=== PATIENT | male | born 1985 | race Caucasian/White ===

== ENCOUNTER 2019-09-21 08:29 | Emergency (ER) | payer OTHER ==
[~2019-09-21] VITALS: Ht 182.9 cm; Wt 99.8 kg
[2019-09-21 08:36] VITALS: BP 134/93
[2019-09-21] MEDS ORDERED: NORCO 5-325 TA1 EAC2 PO (09:22)
[2019-09-21] MEDS ORDERED: ERYTHROMYCIN E3.5 G3 OPHTHALMIC (09:22)
== END 2019-09-21 09:31 | disposition home or self-care (01) ==
LOC: M.ERS 08:29
DX: T15.11XA Foreign body in conjunctival sac, right eye, initial encounter (principal)